=== PATIENT | female | born 1955 | race Caucasian/White ===

== ENCOUNTER 2016-08-08 05:25 | Day surgery (SDC) | payer OTHER ==
[~2016-08-08] VITALS: Ht 160 cm; Wt 55.6 kg
[~2016-08-08 05:25] MED LIST: HYDR-906 PO; RANI150T9 PO; TRAM50TA2 PO
[2016-08-08 06:54] VITALS: Ht 160 cm; Wt 55.6 kg
[2016-08-08] MEDS ORDERED: omeprazole PO (07:03)
[2016-08-08 07:19] VITALS: BP 182/75; PULSE 65; RESP 12
[2016-08-08] MEDS ORDERED: FENTAnyl 50 MCG/ML VIAL ONE (08:01)
[2016-08-08] MEDS ORDERED: MIDAZOLAM 1 MG/ML 2 ML INJ ONE (08:01)
--- NOTE | 2016-08-08 10:02 | GILP ---
DATE OF PROCEDURE: NAME OF PROCEDURES: Esophagogastroduodenoscopy and biopsy. SURGEON: Faye Wade MD PREOPERATIVE DIAGNOSES: 1. Abdominal pain. 2. Chronic heartburn. POSTOPERATIVE DIAGNOSES: 1. Hiatal hernia. 2. Gastroesophageal reflux disease. 3. Gastritis with erosions. 4. Gastric mucosal biopsies were taken for Helicobacter pylori test. INDICATION FOR THE PROCEDURE: Mr. Rylee Delong is a 61-year-old female patient who had upper abdo merrill pain and chronic heartburn, not responding to therapy. The patient was scheduled for endoscop ic examination for further evaluation. The procedure and possible complications were well explained to the patient, she understood and cons ented to the procedure. DESCRIPTION OF PROCEDURE: Under the influence of fentanyl and Versed, the gastroscope was carefully introduced into the esophagus and under direct vision, it was advanced to the stomach and through t he pylorus into the duodenal bulb and descending duodenum. FINDINGS: ESOPHAGUS: The patient had hiatal hernia and gastroesophageal reflux disease. STOMACH: She had gastritis with erosions. Gastric mucosal biopsies were taken for H. pylori test. DUODENUM: Normal. She tolerated the procedure very well and there was no complication from the procedure. At the end of the procedures, she was awake with stable vital signs and she was discharged home to the care of her family. IMPRESSION: 1. Hiatal hernia and gastroesophageal reflux disease. 2. Gastritis with erosions. 3. Gastric mucosal biopsies were taken for Helicobacter pylori test. PLAN: 1. Continue omeprazole. 2. Add Zantac 300 mg p.o. at bedtime. 3. Await H. pylori test report. Dictated By: FAYE FAYE/FRANCO Conf#: [id number] DID#: [id number]
--- NOTE | 2016-08-09 07:34 | CONS ---
DATE OF ADMISSION: 08/08/2016 DATE OF CONSULTATION: TYPE OF CONSULTATION: Preoperative gastroenterology. I thank you very much for this kind referral. HISTORY OF PRESENT ILLNESS: Ms. Rylee Delong is a 61-year-old female patient who has been referre d to me for further evaluation of upper abdominal pain, not responding to therapy with omeprazole. The patient also complains of heartburn. Her appetite has been poor and she states that she has bee n losing weight. She is not taking any nonsteroidal anti-inflammatory agents. There is no history of gallstones. She does not have any fever, chills or jaundice. There is no history of liver disea se. Patient denies any change in the bowel habit or rectal bleeding. There is no past history of c olon neoplasm. The patient had a screening colonoscopy 1-1/2 years ago and no colon neoplasm was id entified. She is not a hypertensive or diabetic. She does not have any heart disease or lung probl em. There is no history of kidney disease. SOCIAL HISTORY: She is a nonsmoker. She does not abuse alcohol. FAMILY HISTORY: Negative for gastrointestinal tract neoplasm. ALLERGIES: THERE IS NO HISTORY OF SIGNIFICANT DRUG ALLERGY. MEDICATIONS: Omeprazole 20 mg. PHYSICAL EXAMINATION GENERAL: She is 5 feet 3 inches tall and she weighs 120 pounds. HEART: Examination of the heart reveals normal first and second heart sounds. LUNGS: Clear. ABDOMEN: Soft without any distention. Liver and spleen are not palpable. There are no masses. Th ere is no focal tenderness. Normal bowel sounds are heard. CENTRAL NERVOUS SYSTEM: Examination does not reveal any focal neurological deficit. IMPRESSION: 1. Upper abdominal pain and chronic heartburn, not responding to therapy with omeprazole. 2. The patient also complains of loss of appetite and weight loss. 3. The patient had a screening colonoscopy 1-1/2 years ago and no colon neoplasm was identified. PLAN: 1. Omeprazole 40 mg p.o. q.a.m. 2. Zantac 300 mg p.o. at bedtime. 3. Abdominal ultrasound and upper endoscopy for further evaluation. The procedure and possible complications are well explained to the patient. She understands and con sents to the procedure. I thank you once again. With warmest personal regards, Dictated By: JOCELINE FAYE/FRANCO Conf#: [id number] [facility]#: [id number]
== END 2016-08-08 09:50 | disposition home or self-care (01) ==
LOC: GIL 05:25
PROVIDERS: ATTEND Internal Medicine Gastroenterology
DX: K44.9 Diaphragmatic hernia without obstruction or gangrene (principal); K21.9 Gastro-esophageal reflux disease without esophagitis
CPT/HCPCS: 43239; 87081; J2250; J3010; Z7610